=== PATIENT | female | born 1955 ===

== ENCOUNTER 2023-12-15 05:54 | Day surgery (SDC) | payer OTHER ==
[~2023-12-15 05:54] MED LIST: ADULT LOW DOSE81 M1 PO; GRALISE600 MG PO; LIPITOR20 MG PO; LISINOPRIL2.5 MG PO; METFORMIN HCL500 M3 PO
[2023-12-15] MEDS ORDERED: VANCOMYCIN HCL 1,000 MG VIAL IR ONE (09:45)
[2023-12-15] MEDS ORDERED: CEFAZOLIN SODIUM 1,000 MG VIAL IV ONE (09:45)
[2023-12-15] MEDS ORDERED: MACROBID 100 M100 MG PO (10:01)
[2023-12-15] MEDS ORDERED: TRAM1TAB98 PO (10:02)
== END 2023-12-15 14:45 | disposition home or self-care (01) ==
LOC: CIR.AMB 05:54
PROVIDERS: ATTEND Obstetrics & Gynecology Gynecology
DX: R39.14 Feeling of incomplete bladder emptying (principal); T83.198A Other mechanical complication of other urinary devices and implants, initial encounter; R39.15 Urgency of urination; I10 Essential (primary) hypertension; E78.5 Hyperlipidemia, unspecified; E11.9 Type 2 diabetes mellitus without complications